=== PATIENT | female | born 1980 | race Caucasian/White ===

== ENCOUNTER 2021-11-23 18:52 | Emergency (ER) | payer MEDICAID ==
[~2021-11-23] VITALS: Ht 154.9 cm; Wt 84.5 kg
[2021-11-23 20:49] LABS: HCG SERUM/URINE (NEG/POS) NEGATIVE (NEGATIVE)
[2021-11-23 21:26] LABS: HEMATOCRIT 41.6 % (37.0-47.0); HEMOGLOBIN 13.2 g/dl (12.0-16.0); IMMATURE GRANULOCYTES 0.2 % (0.0-5.0); MEAN CORPUSCULAR HGB 26.3 pG CALC (26.0-32.0); MEAN CORPUSCULAR HGB CONC 31.7 g/dL CAL (32.0-36.0); NEUT# 7.55 thou/uL (2.00-7.15); RED BLOOD COUNT 5.01 mill/uL (4.20-5.60); RED CELL DISTRI WIDTH 12.9 % (11.5-15.5)
[2021-11-23 21:36] LABS: ALBUMIN 4.4 g/dL (3.2-5.0); ALKALINE PHOSPHATASE 90 u/l (38-126); ANION GAP 14 (6-22 (CALC)); BILIRUBIN, TOTAL 0.4 mg/dL (0.0-1.4); BUN 13 mg/dL (7-17); BUN/CREATININE RATIO 32 (12-20 (CALC)); CARBON DIOXIDE 28 mmol/l (22-30); CHLORIDE 101 mmol/l (95-108); CREATININE 0.4 mg/dL (0.5-1.0); GFR FOR AFR.AMER. > 60 ML/MIN (>=60 (CALC)); GFR OTHER RACES > 60 ML/MIN (>=60 (CALC)); POTASSIUM 4.5 mmol/l (3.5-5.1); SGOT/AST 21 u/l (14-36); SODIUM 138 mmol/l (137-146); TOTAL PROTEIN 7.9 g/dL (6.3-8.2)
[2021-11-23] MEDS ORDERED: KEFLEX500 MG PO ×2 (22:02→22:03)
[2021-11-23] MEDS ORDERED: ROBITUSSIN AC10 ML PO ×2 (22:02→22:04)
[2021-11-23 22:12] VITALS: BP 125/83
[2021-11-23 22:23] VITALS: BP 125/83
== END 2021-11-23 22:26 | disposition home or self-care (01) ==
LOC: ED 18:52
PROVIDERS: Emergency Medicine
DX: J06.9 Acute upper respiratory infection, unspecified (principal); E11.9 Type 2 diabetes mellitus without complications; Z20.822 Contact with and (suspected) exposure to COVID-19

== ENCOUNTER 2022-01-02 11:25 | Emergency (ER) | payer MEDICAID ==
[~2022-01-02] VITALS: Ht 154.9 cm; Wt 84.5 kg
[~2022-01-02 11:25] MED LIST: KEFLEX500 MG PO; ROBITUSSIN AC10 ML PO
[2022-01-02 11:30] VITALS: BP 122/86
[2022-01-02 11:46] VITALS: BP 126/89
[2022-01-02 12:00] VITALS: BP 118/85
[2022-01-02 12:02] LABS: HEMOGLOBIN 14.1 g/dl (12.0-16.0); IMMATURE GRANULOCYTES 0.1 % (0.0-5.0); NEUT# 8.05 thou/uL (2.00-7.15); RED BLOOD COUNT 5.43 mill/uL (4.20-5.60); RED CELL DISTRI WIDTH 13.7 % (11.5-15.5)
[2022-01-02] MEDS ORDERED: HUMALOG100 UNIT (12:02)
[2022-01-02] MEDS ORDERED: LANTUS100 UNIT SC (12:02)
[2022-01-02 12:24] LABS: ALBUMIN 4.4 g/dL (3.2-5.0); ALKALINE PHOSPHATASE 102 u/l (38-126); ANION GAP 15 (6-22 (CALC)); BILIRUBIN, TOTAL 0.6 mg/dL (0.0-1.4); BUN 6 mg/dL (7-17); BUN/CREATININE RATIO 13 (12-20 (CALC)); CARBON DIOXIDE 23 mmol/l (22-30); CHLORIDE 99 mmol/l (95-108); CREATININE 0.5 mg/dL (0.5-1.0); GFR FOR AFR.AMER. > 60 ML/MIN (>=60 (CALC)); GFR OTHER RACES > 60 ML/MIN (>=60 (CALC)); POTASSIUM 3.6 mmol/l (3.5-5.1); SGOT/AST 29 u/l (14-36); SODIUM 134 mmol/l (137-146)
[2022-01-02 12:31] VITALS: BP 126/67
[2022-01-02 14:23] VITALS: BP 110/69
[2022-01-02] MEDS ORDERED: PREDNISONE50 MG PO (14:28)
[2022-01-02] MEDS ORDERED: PROAIR HFA108 MCG/AC PO (14:28)
[2022-01-02] MEDS ORDERED: ZPAK PO (14:28)
[2022-01-02 14:35] VITALS: BP 110/69
== END 2022-01-02 14:35 | disposition home or self-care (01) ==
LOC: ED 11:25
PROVIDERS: Family Medicine
DX: J40 Bronchitis, not specified as acute or chronic (principal); E11.9 Type 2 diabetes mellitus without complications; F41.9 Anxiety disorder, unspecified; Z79.4 Long term (current) use of insulin; Z20.822 Contact with and (suspected) exposure to COVID-19

== ENCOUNTER 2022-02-19 07:55 | Emergency (ER) | payer MEDICAID ==
[~2022-02-19] VITALS: Ht 154.9 cm; Wt 76.3 kg
[~2022-02-19 07:55] MED LIST changes: +HUMALOG100 UNIT; +LANTUS100 UNIT SC; +PREDNISONE50 MG PO; +PROAIR HFA108 MCG/AC PO; +ZPAK PO
[2022-02-19 08:17] VITALS: BP 137/82
[2022-02-19] MEDS ORDERED: PREDNISONE50 MG PO (08:48)
[2022-02-19] MEDS ORDERED: TESSALON PERLE100 MG PO (08:48)
[2022-02-19 09:16] LABS: URINE BILIRUBIN - DIPSTICK NEGATIVE (NEGATIVE); URINE BLOOD DIPSTICK LARGE (NEGATIVE); URINE COLOR YELLOW; URINE GLUCOSE - DIPSTICK 500 mg/dL (NEGATIVE); URINE KETONE >=80 mg/dL (NEGATIVE); URINE LEUK ESTERASE NEGATIVE (NEGATIVE); URINE PROTEIN - DIPSTICK NEGATIVE (NEG-TRACE); URINE SPECIFIC GRAVITY 1.025; URINE UROBILINOGEN - DIPSTICK 0.2 E.U./dL (0.2)
[2022-02-19 09:17] LABS: URINE NITRITE - DIPSTICK NEGATIVE (Negative)
[2022-02-19 09:22] LABS: URINE RBC 50-100 RBC/hpf (0-5)
[2022-02-19 09:24] LABS: URINE SQUAMOUS EPITHELIAL CELL FEW EPI/hpf (0-FEW)
[2022-02-19 09:25] LABS: URINE WBC 0-2 WBC/hpf (0-5)
[2022-02-19] MEDS ORDERED: BACTRIM DS1 TAB PO (09:46)
[2022-02-19 10:04] VITALS: BP 137/82
== END 2022-02-19 10:04 | disposition home or self-care (01) ==
LOC: ED 07:55
PROVIDERS: Emergency Medicine
DX: J06.9 Acute upper respiratory infection, unspecified (principal); E11.9 Type 2 diabetes mellitus without complications; F41.9 Anxiety disorder, unspecified; Z79.4 Long term (current) use of insulin; Z20.822 Contact with and (suspected) exposure to COVID-19

== ENCOUNTER 2022-05-22 17:57 | Emergency (ER) | payer MEDICAID ==
[~2022-05-22] VITALS: Ht 154.9 cm; Wt 81.8 kg
[~2022-05-22 17:57] MED LIST changes: +BACTRIM DS1 TAB PO; +TESSALON PERLE100 MG PO
[2022-05-22 20:32] LABS: URINE BILIRUBIN - DIPSTICK NEGATIVE (NEGATIVE); URINE BLOOD DIPSTICK NEGATIVE (NEGATIVE); URINE COLOR YELLOW; URINE GLUCOSE - DIPSTICK >=1000 mg/dL (NEGATIVE); URINE KETONE TRACE mg/dL (NEGATIVE); URINE LEUK ESTERASE NEGATIVE (NEGATIVE); URINE PH 6.5 (4.5-8.0); URINE PROTEIN - DIPSTICK NEGATIVE (NEG-TRACE); URINE SPECIFIC GRAVITY 1.015; URINE UROBILINOGEN - DIPSTICK 0.2 E.U./dL (0.2)
[2022-05-22 20:36] LABS: URINE NITRITE - DIPSTICK NEGATIVE (Negative)
[2022-05-22] MEDS ORDERED: PYRIDIUM200 MG PO (20:50)
[2022-05-22] MEDS ORDERED: KEFLEX500 MG PO (20:50)
[2022-05-22 20:52] VITALS: BP 123/85
== END 2022-05-22 20:57 | disposition home or self-care (01) ==
LOC: ED 17:57
PROVIDERS: Emergency Medicine
DX: N39.0 Urinary tract infection, site not specified (principal); E11.65 Type 2 diabetes mellitus with hyperglycemia; F41.9 Anxiety disorder, unspecified; Z79.4 Long term (current) use of insulin; Z91.199 Patient's noncompliance with other medical treatment and regimen due to unspecified reason

== ENCOUNTER 2022-07-03 18:48 | Emergency (ER) | payer MEDICAID ==
[~2022-07-03] VITALS: Ht 154.9 cm; Wt 78.4 kg
[~2022-07-03 18:48] MED LIST changes: +PYRIDIUM200 MG PO
[2022-07-03 22:02] VITALS: BP 124/73
[2022-07-03 22:15] VITALS: BP 127/74
[2022-07-03 22:30] VITALS: BP 137/80
[2022-07-03 23:03] LABS: BASO% 0.2 % (0-3); EOS% 0.8 % (0-8); HEMATOCRIT 41.1 % (37.0-47.0); HEMOGLOBIN 12.8 g/dl (12.0-16.0); IMMATURE GRANULOCYTES 0.1 % (0.0-5.0); LYMPH% 13.6 % (15-41); MEAN CELL VOLUME 81.9 fL CALC (80.0-100.0); MEAN CORPUSCULAR HGB 25.5 pG CALC (26.0-32.0); MEAN CORPUSCULAR HGB CONC 31.1 g/dL CAL (32.0-36.0); MONO% 5.9 % (2-13); NEUT# 11.57 thou/uL (2.00-7.15); NEUT% 79.4 % (42-76); RED BLOOD COUNT 5.02 mill/uL (4.20-5.60); RED CELL DISTRI WIDTH 14.2 % (11.5-15.5)
[2022-07-03 23:24] LABS: URINE BLOOD DIPSTICK LARGE (NEGATIVE); URINE COLOR RED; URINE GLUCOSE - DIPSTICK >=1000 mg/dL (NEGATIVE); URINE KETONE >=80 mg/dL (NEGATIVE); URINE LEUK ESTERASE TRACE (NEGATIVE); URINE PH 5.5 (4.5-8.0); URINE PROTEIN - DIPSTICK TRACE mg/dL (NEG-TRACE); URINE UROBILINOGEN - DIPSTICK 0.2 E.U./dL (0.2)
[2022-07-03 23:25] LABS: HCG SERUM/URINE (NEG/POS) NEGATIVE (NEGATIVE)
[2022-07-03 23:37] LABS: URINE NITRITE - DIPSTICK NEGATIVE (Negative)
[2022-07-03 23:42] LABS: ALBUMIN 4.4 g/dL (3.2-5.0); ALKALINE PHOSPHATASE 87 u/l (38-126); AMYLASE 66 u/l (30-110); ANION GAP 17 (6-22 (CALC)); BILIRUBIN, TOTAL 0.6 mg/dL (0.02-1.3); BUN 12 mg/dL (7-17); BUN/CREATININE RATIO 29 (12-20 (CALC)); CARBON DIOXIDE 24 mmol/l (22-30); CHLORIDE 100 mmol/l (95-108); CREATININE 0.4 mg/dL (0.5-1.0); GFR FOR AFR.AMER. > 60 ML/MIN (>=60 (CALC)); GFR OTHER RACES > 60 ML/MIN (>=60 (CALC)); LIPASE 130 u/l (23-300); SGOT/AST 21 u/l (14-36); SODIUM 137 mmol/l (137-146); TOTAL PROTEIN 7.6 g/dL (6.3-8.2)
[2022-07-03 23:43] LABS: POTASSIUM 4.4 mmol/l (3.5-5.1)
[2022-07-03 23:55] LABS: URINE BILIRUBIN - DIPSTICK NEGATIVE (NEGATIVE)
[2022-07-03 23:58] LABS: URINE BACTERIA FEW hpf; URINE EPITHELIAL CELLS FEW EPI/hpf (0-FEW); URINE RBC >100 RBC/hpf (0-5)
[2022-07-04] MEDS ORDERED: ONDANSETRON4 MG PO (00:49)
[2022-07-04] MEDS ORDERED: TAM75CAP PO (00:49)
[2022-07-04 01:55] VITALS: BP 131/76
== END 2022-07-04 01:55 | disposition home or self-care (01) ==
LOC: ED 18:48
PROVIDERS: Emergency Medicine
DX: E11.65 Type 2 diabetes mellitus with hyperglycemia (principal); J11.1 Influenza due to unidentified influenza virus with other respiratory manifestations; F41.9 Anxiety disorder, unspecified; Z79.4 Long term (current) use of insulin; Z20.822 Contact with and (suspected) exposure to COVID-19